=== PATIENT | female | born 1980 | race African-American/Black ===

== ENCOUNTER 2020-10-07 03:41 | Emergency (ER) | payer MEDICAID ==
[~2020-10-07] VITALS: Ht 160 cm; Wt 54.5 kg
[2020-10-07] MEDS ORDERED: KETOROLAC 30 MG/1 ML ONE (03:59)
[2020-10-07] MEDS ORDERED: KETOROLAC 30 MG/1 ML IM ONE (04:00)
--- NOTE | 2020-10-07 04:00 | NUR ---
patient resting in bed in NAD. call bull in reach. reports left sided LBP. denies any recent trauma. Dr. Moody to bedside. will continue to monitor. no SOB noted, respirations equal.
[2020-10-07 04:10] LABS: BASOPHILS % (AUTO) 1 % (0-1); EOSINOPHILS % (AUTO) 1 % (1-7); LYMPHOCYTES % (AUTO) 10 % (22-44); MEAN CORPUSCULAR HEMOGLOBIN 25.8 pg (27.0-34.8); MEAN CORPUSCULAR HGB CONC 32.3 g/dL (32.4-35.8); MEAN PLATELET VOLUME 7.7 fL (7.4-10.4); MONOCYTES % (AUTO) 6 % (2-9); NEUTROPHILS % (AUTO) 83 % (42-75); PLATELET COUNT 290 x10^3/uL (130-400); RED BLOOD COUNT 4.22 x10^6/uL (3.82-5.3); RED CELL DISTRIBUTION WIDTH 19.1 % (9.6-15.2)
[2020-10-07 04:13] LABS: MD NO
[2020-10-07 04:22] LABS: ALBUMIN 3.7 g/dL (3.4-5.0); ANION GAP 12 mmol/L (5-15); CALCIUM 8.1 mg/dL (8.5-10.1); CHLORIDE 106 mmol/L (98-107); CREATININE 0.85 mg/dL (0.55-1.02)
[2020-10-07] MEDS ORDERED: POTASSIUM CHLORIDE 20 MEQ TAB.ER.PRT ONE (04:41)
[2020-10-07] MEDS ORDERED: POTASSIUM CHLORIDE 20 MEQ TAB.ER.PRT PO ONE (05:00)
--- NOTE | 2020-10-07 05:01 | NUR ---
discharge instructions reviewed with patient. patient requested resources for psychiatry and these were provided to patient. prescription handed directly to patient. patient reported that she felt capable of dressing herself without assistance. all personal belongings with patient on dc. steady gait to lobby. no IV placed during this ER visit
[2020-10-07 05:04] VITALS: BP 149/99
== END 2020-10-07 05:15 | disposition home or self-care (01) ==
LOC: ED 05:00
DX: M54.6 Pain in thoracic spine (principal); E87.6 Hypokalemia; I10 Essential (primary) hypertension; R10.9 Unspecified abdominal pain; R00.0 Tachycardia, unspecified; F17.210 Nicotine dependence, cigarettes, uncomplicated; Z98.51 Tubal ligation status
CPT/HCPCS: 36415; 71046; 80048; 82040; 84703; 85025; 93005; 96372; 99285; 99406; J1885